=== PATIENT | male | born 1985 | race Caucasian/White ===

== ENCOUNTER → 2017-09-20 | Outpatient (CLI) | payer OTHER ==
[~2017-09-20] MED LIST: Veetids 500500 MG PO
[2017-09-20 14:43] LABS: BASOPHILS ABSOLUTE AUTO 0.04 K/mm3 (0.00-0.23); BASOPHILS PERCENT AUTO 0 % (0-2); EOSINOPHILS ABSOLUTE AUTO 0.17 K/mm3 (0.00-0.68); EOSINOPHILS PERCENT AUTO 2 % (0-6); Hematocrit 41.1 % (37.0-53.0); IMMATURE GRAN ABSOLUTE AUTO 0.02 K/mm3 (0.00-0.10); IMMATURE GRAN PERCENT AUTO 0 % (0-1); LYMPHOCYTES ABSOLUTE AUTO 3.01 K/mm3 (0.84-5.20); LYMPHOCYTES PERCENT AUTO 34 % (21-46); MONOCYTES ABSOLUTE AUTO 0.64 K/mm3 (0.16-1.47); MONOCYTES PERCENT AUTO 7 % (4-13); Mean Corpuscular HGB 31.1 pg (26.0-34.0); Mean Corpuscular HGB Conc 34.1 g/dL (31.5-36.5); Mean Corpuscular Volume 91 fL (80-100); Mean Platelet Volume 10.8 fL (9.1-12.4); NEUTROPHILS ABSOLUTE AUTO 5.08 K/mm3 (1.96-9.15); NEUTROPHILS PERCENT AUTO 57 % (41-73); Platelet Count 210 K/mm3 (150-400); RDW Coefficient Variation 11.6 % (11.7-14.2); RDW Standard Deviation 38.8 fL (35.1-46.3); White Blood Cell Count 8.96 K/mm3 (4.00-11.30)
[2017-09-20 15:02] LABS: Anion Gap 11 mmol/L (6-16); Blood Urea Nitrogen 11 mg/dL (8-24); Bun/Creatinine Ratio 12.1 (12.0-20.0); CO2, Blood 24 mmol/L (21-32); Calcium, Blood 9.2 mg/dL (8.5-10.1); Chloride, Blood 104 mmol/L (98-108); Creatinine, Blood 0.91 mg/dL (0.60-1.20); Glomerular Filtration Rate >60 (60-); Glucose, Blood 100 mg/dL (70-99); Potassium, Blood 3.8 mmol/L (3.5-5.5); Sodium, Blood 139 mmol/L (136-145); Troponin I <0.017 ng/mL (0.000-0.040)
== END ==
LOC: LAB EV 14:39 → LAB SHORT 14:39
PROVIDERS: Physician Assistant Surgical
DX: R07.9 Chest pain, unspecified (principal)
CPT/HCPCS: 80048; 84484; 85025

== ENCOUNTER 2018-09-25 06:05 | Day surgery (SDC) | payer OTHER ==
[~2018-09-25] VITALS: Ht 175.3 cm; Wt 66.9 kg
[2018-09-25] MEDS ORDERED: HYDR1TAB94 (07:06)
[2018-09-25] MEDS ORDERED: IBUP800 (07:06)
[2018-09-25] MEDS ORDERED: ABAT250V (07:07)
[2018-09-25] MEDS ORDERED: ALBU90OI6 (07:07)
--- NOTE | 2018-09-25 08:12 | NUR ---
09/25/18 0812 La Dickerson S 0656 PT. WAS INFORMED BY CHARGE NURSE & DR. HOPKINS THAT HIS SURGERY WAS GOING TO BE DELAYED R/T THE EQUIPMENT BEING SLOWED GETTING HERE DUE TO SNOW. 0715 PT.'S FAMILY MEMEBERS ALSO NOTIFIED OF THIS DELAY. PT. HAS HIS RIGHT ANKLE ELEVATED UP ON PILLOWS IN THE BED & IS BEING GIVEN FENTANLY FOR HIS RIGHT ANKLE PAIN. CALL LIGHT IS WITHIN REACH & FAMILY IS IN ROOM WITH PT.
--- NOTE | 2018-09-25 14:25 | NUR ---
09/25/18 1429 Shena Luna LATE ENTRY PT INTO RECLINER, STEADY DURING TRANSFER. TOLERATING PO NOURISHMENT, DENIES PAIN/NAUSEA. FAMILY AT CHAIRSIDE. PT SINGING AND LAUGHING WITH FAMILY. OPERATIVE LEG ELEVATED WITH PILLOW AND ICE FOR COMFORT. PT VSS T/O STAY IN SDU. DISCUSSED DC INSTRUCTIONS WITH PT AND FAMILY, QUESTIONS ANSWERED. PT DC HOME VIA WC TO CAR
== END 2018-09-25 13:12 | disposition home or self-care (01) ==
LOC: ORSCSDS 06:05
PROVIDERS: Podiatrist Foot & Ankle Surgery
PROC: 0QSJ04Z Reposition Right Fibula with Internal Fixation Device, Open Approach (ICD-10-PCS; principal; 2018-09-25 07:30)
PROC: 0QSG04Z Reposition Right Tibia with Internal Fixation Device, Open Approach (ICD-10-PCS; principal; 2018-09-25 07:30)
DX: S82.874A Nondisplaced pilon fracture of right tibia, initial encounter for closed fracture (principal); S82.64XA Nondisplaced fracture of lateral malleolus of right fibula, initial encounter for closed fracture; W00.0XXA Fall on same level due to ice and snow, initial encounter; Y93.23 Activity, snow (alpine) (downhill) skiing, snowboarding, sledding, tobogganing and snow tubing
CPT/HCPCS: C1713; J0690; J1100; J1885; J2250; J2405; J3010; J7120

== ENCOUNTER 2019-01-16 21:46 | Emergency (ER) | payer OTHER ==
[~2019-01-16] VITALS: Ht 175.3 cm; Wt 68.0 kg
[~2019-01-16 21:46] MED LIST changes: +ABAT250V; +ALBU90OI6; +HYDR1TAB94; +IBUP800
[2019-01-16 23:20] LABS: BASOPHILS ABSOLUTE AUTO 0.08 K/mm3 (0.00-0.23); BASOPHILS PERCENT AUTO 1 % (0-2); EOSINOPHILS ABSOLUTE AUTO 0.87 K/mm3 (0.00-0.68); EOSINOPHILS PERCENT AUTO 9 % (0-6); Hemoglobin 14.4 g/dL (13.5-17.5); IMMATURE GRAN ABSOLUTE AUTO 0.02 K/mm3 (0.00-0.10); IMMATURE GRAN PERCENT AUTO 0 % (0-1); LYMPHOCYTES ABSOLUTE AUTO 4.06 K/mm3 (0.84-5.20); LYMPHOCYTES PERCENT AUTO 40 % (21-46); MONOCYTES ABSOLUTE AUTO 0.91 K/mm3 (0.16-1.47); MONOCYTES PERCENT AUTO 9 % (4-13); Mean Corpuscular HGB 30.1 pg (26.0-34.0); Mean Corpuscular Volume 94 fL (80-100); Mean Platelet Volume 10.9 fL (9.1-12.4); NEUTROPHILS ABSOLUTE AUTO 4.34 K/mm3 (1.96-9.15); NEUTROPHILS PERCENT AUTO 42 % (41-73); Platelet Count 188 K/mm3 (150-400); Red Blood Cell Count 4.78 M/mm3 (4.30-5.90); White Blood Cell Count 10.28 K/mm3 (4.00-11.30)
[2019-01-16 23:38] LABS: Alanine Aminotransfer (ALT/SGP 34 U/L (12-78); Albumin, Blood 4.1 g/dL (3.4-5.0); Albumin/Globulin Ratio 1.1 (0.8-1.8); Alk Phos 85 U/L (50-136); Anion Gap 5 mmol/L (6-16); Aspartate Aminotrans (AST/SGOT 24 U/L (12-37); Bilirubin, Total 0.3 mg/dL (0.1-1.0); Blood Urea Nitrogen 16 mg/dL (8-24); Bun/Creatinine Ratio 18.3 (12.0-20.0); CO2, Blood 28 mmol/L (21-32); Calcium, Blood 8.7 mg/dL (8.5-10.1); Chloride, Blood 108 mmol/L (98-108); Creatinine, Blood 0.87 mg/dL (0.60-1.20); Globulin, Blood 3.7 g/dL (2.2-4.0); Glomerular Filtration Rate >60 (60-); Glucose, Blood 91 mg/dL (70-99); Potassium, Blood 3.7 mmol/L (3.5-5.5); Sodium, Blood 141 mmol/L (136-145); Total Protein, Blood 7.8 g/dL (6.4-8.2)
[2019-01-17] MEDS ORDERED: ALBU90OI6 INH (15:51)
[2019-01-17] MEDS ORDERED: IBUP600 PO (16:06)
[2019-01-18] MEDS ORDERED: METO50ER PO (17:35)
[2019-01-18] MEDS ORDERED: MONT10T PO (17:36)
== END 2019-01-17 00:43 | disposition home or self-care (01) ==
LOC: ER 21:46
PROVIDERS: Emergency Medicine
DX: I47.1 Supraventricular tachycardia (principal); Z88.8 Allergy status to other drugs, medicaments and biological substances; Z79.899 Other long term (current) drug therapy; Z79.891 Long term (current) use of opiate analgesic
CPT/HCPCS: 36415; 71046; 80053; 85025; 93005; 93010; 99285-25

== ENCOUNTER 2019-01-17 12:30 | Observation (INO) | payer OTHER ==
[~2019-01-17] VITALS: Ht 175.3 cm; Wt 71.1 kg
[2019-01-17] MEDS ORDERED: ALBU90OI6 INH (15:51)
[2019-01-17] MEDS ORDERED: IBUP600 PO (16:06)
[2019-01-17 16:14] LABS: U Amphetamine Screen Not Detected; U Barbituate Screen Not Detected; U Benzodiazapine Screen Not Detected; U Buprenorphine Screen Not Detected; U Cannabinoids Screen Not Detected; U Cocaine Screen Not Detected; U Methadone Screen Not Detected; U Methamphetamine Screen Not Detected; U Opiates Screen Not Detected; U Oxycodone Screen Not Detected; U Phencyclidine Screen Not Detected; U Propoxyphene Screen Not Detected
--- NOTE | 2019-01-17 16:30 | NUR ---
1530 PT RECEIVED FROM ER. ALERT AND ORIENTED X3. LUNG SOUNDS CLEAR. NSR RATE 72 ON TELEMETRY. PT HAVING BOUTS OF POSSIBLE SVT / AFIB WITH RVR ALONG WITH SOME 3-17 BEAT RUNS OF V TACH. PT STATES HE CAN FEEL WHEN HIS HEART GOES UP AND WHEN IT IS IRREGULAR. BP REMAINS STABLE EVEN WITH HEART RATE ELEVATION. CARDIZEM GTT STARTED PER ORDERS, HEART IMPROVED SLIGHTLY. BACK IN NSR RATE 70s. DR. VELOZ NOTIFIED OF CONSULT AND ELEVATED HEART RATE. ORDERS FOR IV LOPRESSOR. 5 MG IV LOPRESSOR GIVEN. BP REMAINS STABLE. 1715 DR. VELOZ IN ROOM SEEING PT. CARDIZEM GTT AND CARDIZEM PO DC'D. WILL CONTINUE TO MONITOR.
--- NOTE | 2019-01-17 19:49 | NUR ---
SHIFT SUMMARY PT RESTING IN BED SINCE ARRIVAL FROM ER. UP TO BATHROOM WITH STANDBY ASSIST. ALERT AND ORIENTED X3. LUNG SOUNDS CLEAR. NSR RATE 70s PER TELEMETRY, BUT PT HAVING BOUTS OF SVT / AFIB RATE 100s-200s. PT BECOMING SYMPTOMATIC WITH TACHYCARDIA, BP REMAINS STABLE. IV LOPRESSOR GIVEN ONCE, PT TO START PO LOPRESSOR TONIGHT. PT TOLERATED DINNER WELL. WILL CONTINUE TO MONITOR.
--- NOTE | 2019-01-17 21:00 | NUR ---
SPOKE WITH PROVIDER DR VELOZ CALLING FOR UPDATE ON PATIENT. PHYSICIAN INFORMED OF CONTINUED RHYTHM CHANGES AND ELEVATED HEART RATE RANGING FROM 100-200 BPM. ORDERS RECEIVED TO INCREASE CURRENT METOPROLOL ORDER TO 50 MG PO BID, STARTING THIS EVENING. WILL INPUT ORDERS AND ADMINISTER.
[2019-01-18 03:53] LABS: BASOPHILS ABSOLUTE AUTO 0.05 K/mm3 (0.00-0.23); BASOPHILS PERCENT AUTO 1 % (0-2); EOSINOPHILS ABSOLUTE AUTO 0.76 K/mm3 (0.00-0.68); EOSINOPHILS PERCENT AUTO 9 % (0-6); Hematocrit 42.6 % (37.0-53.0); Hemoglobin 13.5 g/dL (13.5-17.5); IMMATURE GRAN ABSOLUTE AUTO 0.02 K/mm3 (0.00-0.10); IMMATURE GRAN PERCENT AUTO 0 % (0-1); LYMPHOCYTES ABSOLUTE AUTO 3.36 K/mm3 (0.84-5.20); LYMPHOCYTES PERCENT AUTO 38 % (21-46); MONOCYTES ABSOLUTE AUTO 0.76 K/mm3 (0.16-1.47); MONOCYTES PERCENT AUTO 9 % (4-13); Mean Corpuscular HGB 30.3 pg (26.0-34.0); Mean Corpuscular HGB Conc 31.7 g/dL (31.5-36.5); Mean Platelet Volume 10.8 fL (9.1-12.4); NEUTROPHILS ABSOLUTE AUTO 3.95 K/mm3 (1.96-9.15); NEUTROPHILS PERCENT AUTO 44 % (41-73); Platelet Count 169 K/mm3 (150-400); RDW Coefficient Variation 12.2 % (11.7-14.2); RDW Standard Deviation 42.9 fL (35.1-46.3); Red Blood Cell Count 4.45 M/mm3 (4.30-5.90)
[2019-01-18 03:54] LABS: Mean Corpuscular Volume 96 fL (80-100)
[2019-01-18 04:13] LABS: Alanine Aminotransfer (ALT/SGP 31 U/L (12-78); Albumin, Blood 3.4 g/dL (3.4-5.0); Albumin/Globulin Ratio 1.1 (0.8-1.8); Alk Phos 55 U/L (50-136); Anion Gap 5 mmol/L (6-16); Aspartate Aminotrans (AST/SGOT 14 U/L (12-37); Bilirubin, Total 0.7 mg/dL (0.1-1.0); Blood Urea Nitrogen 11 mg/dL (8-24); Bun/Creatinine Ratio 12.7 (12.0-20.0); CO2, Blood 26 mmol/L (21-32); Calcium, Blood 8.2 mg/dL (8.5-10.1); Chloride, Blood 112 mmol/L (98-108); Creatinine, Blood 0.87 mg/dL (0.60-1.20); Globulin, Blood 3.2 g/dL (2.2-4.0); Glomerular Filtration Rate >60 (60-); Glucose, Blood 83 mg/dL (70-99); Magnesium, Blood 2.3 mg/dL (1.6-2.4); Potassium, Blood 4.1 mmol/L (3.5-5.5); Sodium, Blood 143 mmol/L (136-145); Total Protein, Blood 6.6 g/dL (6.4-8.2); Troponin I <0.015 ng/mL (0.000-0.040)
--- NOTE | 2019-01-18 06:32 | NUR ---
SHIFT SUMMARY PT HAS REMAINED AOX4 THROUGHOUT SHIFT. PLEASANT AND COOPERATIVE WITH CARE. PT REMAINS IN NORMAL SINUS RHTYHM THROUGH MUCH OF THE NIGHT, BUT CONTINUES TO HAVE WHAT RUNS OF SVT AND AFIB WITH RATE RANGING FROM 100-200. PT DENIES CHEST PAIN WITH THESE EPISODES, BUT REPORTS THAT THE FLUTTERING FEELING WITH IS VERY UNCOMFORTABLE. EPISODES HAVE BECOME LESS FREQUENT THE NIGHT HAS GONE ON AND HEART RATE HAS NOT SPIKED HIGH WITH EPISODES. PT CONTINUES TO HAVE DEFIBRILLATION PADS IN PLACE AND CONNECTED TO ZOLL PER HIS REQUEST. ALL OTHER VITAL SIGNS HAVE REMAINED STABLE THROUGHOUT THE NIGHT. NO OTHER CHANGES FROM INITIAL ASSESSMENT. WILL CONTINUE TO MONITOR AND REPORT TO ONCOMING SHIFT RN. BED IN LOW POSITION, CALL LIGHT IN REACH.
--- NOTE | 2019-01-18 11:27 | NUR ---
Echocardiogram completed.
--- NOTE | 2019-01-18 16:30 | NUR ---
SHIFT SUMMARY PT RESTING IN BED THROUGHOUT THE DAY. ALERT AND ORIENTED X3. DENIES PAIN THROUGHOUT THE DAY. LUNG SOUNDS INSPIRATORY / EXPIRATORY WHEEZES TO LEFT SIDE, CLEAR TO THE RIGHT. NSR RATE 60s-70s ON TELEMETRY. FAMILY AT BEDSIDE THROUGHOUT THE DAY. UP TO BATHROOM INDEPENDENTLY. WILL CONTINUE TO MONITOR.
[2019-01-18] MEDS ORDERED: METO50ER PO (17:35)
[2019-01-18] MEDS ORDERED: MONT10T PO (17:36)
--- NOTE | 2019-01-18 18:04 | NUR ---
DISCHARGE NOTE PT STABLE FOR DISCHARGE. IV X2 REMOVED. DISCHARGE INSTRUCTIONS, DISCHARGE MEDICATIONS, AND MEDICATION EDUCATION PROVIDED TO PT. PT VERBALIZES UNDERSTANDING AND DENIES QUESTIONS. PT DISCHARGED VIA WHEELCHAIR TO WAITING CAR.
== END 2019-01-18 18:04 | disposition home or self-care (01) ==
LOC: ER 12:30 → PCU 14:46
PROVIDERS: ADMIT Internal Medicine Gastroenterology
DX: I48.0 Paroxysmal atrial fibrillation (principal); J45.909 Unspecified asthma, uncomplicated; Z79.899 Other long term (current) drug therapy; Z91.041 Radiographic dye allergy status
CPT/HCPCS: 36415; 80053; 82550; 83735; 83880; 84439; 84443; 84484; 85025; 85027; 85379; 93005; 93010; 93306; 96374; 99285-25; J3480

== ENCOUNTER 2020-06-23 23:02 | Emergency (ER) | payer OTHER ==
[~2020-06-23] VITALS: Ht 167.6 cm; Wt 81.7 kg
[~2020-06-23 23:02] MED LIST changes: +ALBU90OI6 INH; +IBUP600 PO; +METO50ER PO; +MONT10T PO
[2020-06-23 23:41] LABS: BASOPHILS ABSOLUTE AUTO 0.04 K/mm3 (0.00-0.23); BASOPHILS PERCENT AUTO 0 % (0-2); EOSINOPHILS ABSOLUTE AUTO 0.26 K/mm3 (0.00-0.68); EOSINOPHILS PERCENT AUTO 3 % (0-6); Hematocrit 41.9 % (37.0-53.0); Hemoglobin 13.8 g/dL (13.5-17.5); IMMATURE GRAN ABSOLUTE AUTO 0.03 K/mm3 (0.00-0.10); IMMATURE GRAN PERCENT AUTO 0 % (0-1); LYMPHOCYTES ABSOLUTE AUTO 4.21 K/mm3 (0.84-5.20); LYMPHOCYTES PERCENT AUTO 44 % (21-46); MONOCYTES ABSOLUTE AUTO 0.76 K/mm3 (0.16-1.47); MONOCYTES PERCENT AUTO 8 % (4-13); Mean Corpuscular HGB 30.8 pg (26.0-34.0); Mean Corpuscular HGB Conc 32.9 g/dL (31.5-36.5); Mean Corpuscular Volume 94 fL (80-100); Mean Platelet Volume 10.7 fL (9.1-12.4); NEUTROPHILS PERCENT AUTO 44 % (41-73); Platelet Count 196 K/mm3 (150-400); RDW Coefficient Variation 11.5 % (11.7-14.2); RDW Standard Deviation 39.3 fL (35.1-46.3); Red Blood Cell Count 4.48 M/mm3 (4.30-5.90)
[2020-06-24 00:01] LABS: Alanine Aminotransfer (ALT/SGP 40 U/L (12-78); Albumin, Blood 3.9 g/dL (3.4-5.0); Albumin/Globulin Ratio 1.1 (0.8-1.8); Alk Phos 67 U/L (50-136); Anion Gap 5 mmol/L (6-16); Aspartate Aminotrans (AST/SGOT 22 U/L (12-37); Bilirubin, Total 0.3 mg/dL (0.1-1.0); Blood Urea Nitrogen 16 mg/dL (8-24); Bun/Creatinine Ratio 16.6 (12.0-20.0); CO2, Blood 27 mmol/L (21-32); Calcium, Blood 8.3 mg/dL (8.5-10.1); Chloride, Blood 108 mmol/L (98-108); Creatinine, Blood 0.97 mg/dL (0.60-1.20); Globulin, Blood 3.5 g/dL (2.2-4.0); Glomerular Filtration Rate >60 (60-); Glucose, Blood 106 mg/dL (70-99); Potassium, Blood 3.6 mmol/L (3.5-5.5); Sodium, Blood 140 mmol/L (136-145); Total Protein, Blood 7.4 g/dL (6.4-8.2); Troponin I <0.015 ng/mL (0.000-0.040)
== END 2020-06-24 01:19 | disposition left against medical advice (07) ==
LOC: ER 23:02
PROVIDERS: Physician Assistant
DX: R42 Dizziness and giddiness (principal); R23.2 Flushing; Z53.21 Procedure and treatment not carried out due to patient leaving prior to being seen by health care provider; Z79.899 Other long term (current) drug therapy
CPT/HCPCS: 36415; 71046; 80053; 84484; 85025; 93005; 93010; 99284-25